=== PATIENT | female | born 1955 | race African-American/Black ===

== ENCOUNTER 2020-08-09 18:56 | Inpatient (IN) | payer MEDICARE ==
[2020-08-09] MEDS ORDERED: Apixaban 5 MG TAB PO SCH (21:00)
[2020-08-09] MEDS ORDERED: Acetaminophen 325 MG TAB PO PRN (21:17)
[2020-08-09] MEDS ORDERED: Nitroglycerin 0.4 MG TAB (25 Tab Bottle) SL PRN (21:23)
[2020-08-09] MEDS ORDERED: Ondansetron ODT 4 MG TAB SL PRN (21:23)
[2020-08-09] MEDS: HYDROcodone/Acetaminophen 5/325 mg Tablet PO PRN (21:31)
[2020-08-09] MEDS: Gabapentin 300 MG CAP PO SCH (21:33)
[2020-08-09] MEDS: predniSONE 10 MG TAB PO SCH (21:35)
[2020-08-10] MEDS: HYDROcodone/Acetaminophen 5/325 mg Tablet PO PRN ×2 (05:09→20:31)
[2020-08-10 07:43] LABS: Hemoglobin 7.8 g/dL (12.0-16.0); Mean Corpuscular HGB CONC 30.3 g/dL (32.0-36.0); Mean Corpuscular Volume 92.6 fL (78.0-98.0); Mean Platelet Volume 7.3 fL (7.4-10.4); Platelet Count 482 thou/uL (130-400); RBC Distribution Width 18.4 % (11.5-14.5); Red Blood Cell (RBC) Count 2.77 mill/uL (4.20-5.40); White Blood Cell (WBC) Count 3.9 thou/uL (4.8-10.8)
[2020-08-10 08:12] LABS: Carbon Dioxide 21 mmol/L (23-31); Chloride 112 mmol/L (98-107); Potassium 4.9 mmol/L (3.5-5.1); Sodium 140 mmol/L (136-145)
[2020-08-10 08:13] LABS: AST (SGOT) 43 U/L (5-34); Albumin 2.7 g/dL (3.4-4.8); Alkaline Phosphatase 117 U/L (40-110); BUN (Urea Nitrogen) 14 mg/dL (9.8-20.1); Bilirubin, Total 0.5 mg/dL (0.2-1.2); Calc. Creatinine Clearance 128 mL/min (70-130); Calcium 8.9 mg/dL (7.8-10.44); Globulin 2.5 g/dL (2.4-3.5); Glucose 84 mg/dL (80-115); Protein, Total 5.2 g/dL (5.8-8.1)
[2020-08-10 08:14] LABS: ALT (SGPT) 44 U/L (8-55); Anion Gap 10 mmol/L (10-20)
[2020-08-10 08:15] LABS: Manual Diff?? YES
[2020-08-10 08:25] LABS: Band 4 % (5-11); Eosinophils 1 % (0-10); MDiff Complete? YES; Monocytes 25 % (0-10); Neutrophil 48 % (42-75)
[2020-08-10 08:26] LABS: Anisocytosis SLIGHT = 6-15 cells (100X) (0-5/hpf); Platelet Morphology Comment Appears Increased
[2020-08-10 08:28] LABS: Lymphocytes 22 % (21-51)
[2020-08-10] MEDS: Aspirin Chewable 81 MG TAB PO SCH (08:30)
[2020-08-10] MEDS: predniSONE 10 MG TAB PO SCH ×2 (08:30→20:35)
[2020-08-10] MEDS: Gabapentin 300 MG CAP PO SCH (20:32)
[2020-08-11 05:34] LABS: Anisocytosis SLIGHT = 6-15 cells (100X) (0-5/hpf); Band 6 % (5-11); Large Platelets SLIGHT; Lymphocytes 31 % (21-51); MDiff Complete? YES; Mean Corpuscular HGB CONC 29.3 g/dL (32.0-36.0); Mean Corpuscular Hemoglobin 27.1 pg (27.0-31.0); Mean Corpuscular Volume 92.5 fL (78.0-98.0); Mean Platelet Volume 7.5 fL (7.4-10.4); Monocytes 33 % (0-10); Neutrophil 30 % (42-75); Platelet Clumps SLIGHT; Platelet Count 433 thou/uL (130-400); Platelet Morphology Comment Appears Increased; RBC Distribution Width 17.9 % (11.5-14.5); Red Blood Cell (RBC) Count 2.58 mill/uL (4.20-5.40); White Blood Cell (WBC) Count 4.6 thou/uL (4.8-10.8)
[2020-08-11] MEDS: Aspirin Chewable 81 MG TAB PO SCH (08:12)
[2020-08-11] MEDS: predniSONE 10 MG TAB PO SCH ×2 (08:12→20:57)
[2020-08-11] MEDS: HYDROcodone/Acetaminophen 5/325 mg Tablet PO PRN ×3 (08:14→20:58)
[2020-08-11] MEDS ORDERED: Apixaban 5 MG TAB PO SCH (14:00)
[2020-08-11] MEDS: Apixaban 5 MG TAB PO SCH ×4 (14:23→20:57)
[2020-08-11 20:04] LABS: Hemoglobin 8.3 g/dL (12.0-16.0)
[2020-08-11] MEDS: Gabapentin 300 MG CAP PO SCH (20:57)
[2020-08-12 05:46] LABS: Anisocytosis SLIGHT = 6-15 cells (100X) (0-5/hpf); Band 5 % (5-11); Hemoglobin 8.8 g/dL (12.0-16.0); Large Platelets SLIGHT; Lymphocytes 27 % (21-51); MDiff Complete? YES; Mean Corpuscular HGB CONC 29.9 g/dL (32.0-36.0); Mean Corpuscular Volume 90.3 fL (78.0-98.0); Mean Platelet Volume 7.4 fL (7.4-10.4); Monocytes 42 % (0-10); Neutrophil 26 % (42-75); Platelet Clumps SLIGHT; Platelet Count 431 thou/uL (130-400); Platelet Morphology Comment Appears Increased; RBC Distribution Width 18.7 % (11.5-14.5); Red Blood Cell (RBC) Count 3.24 mill/uL (4.20-5.40); White Blood Cell (WBC) Count 6.2 thou/uL (4.8-10.8)
[2020-08-12] MEDS: Apixaban 5 MG TAB PO SCH ×2 (08:45→20:45)
[2020-08-12] MEDS: predniSONE 10 MG TAB PO SCH ×2 (08:45→20:45)
[2020-08-12] MEDS: Aspirin Chewable 81 MG TAB PO SCH (08:45)
[2020-08-12] MEDS: HYDROcodone/Acetaminophen 5/325 mg Tablet PO PRN ×2 (08:52→20:45)
[2020-08-12] MEDS: Gabapentin 300 MG CAP PO SCH (20:45)
[2020-08-13] MEDS: Apixaban 5 MG TAB PO SCH ×2 (08:15→20:42)
[2020-08-13] MEDS: predniSONE 10 MG TAB PO SCH ×2 (08:15→20:43)
[2020-08-13] MEDS: Aspirin Chewable 81 MG TAB PO SCH (08:15)
[2020-08-13] MEDS: HYDROcodone/Acetaminophen 5/325 mg Tablet PO PRN ×2 (08:16→20:43)
[2020-08-13] MEDS ORDERED: Polyethylene Glycol 3350 17 GM Packet PO PRN (13:31)
[2020-08-13] MEDS: Gabapentin 300 MG CAP PO SCH (20:42)
[2020-08-14 05:40] LABS: Anisocytosis SLIGHT = 6-15 cells (100X) (0-5/hpf); Band 8 % (5-11); Hemoglobin 8.5 g/dL (12.0-16.0); Lymphocytes 17 % (21-51); MDiff Complete? YES; Mean Corpuscular HGB CONC 30.4 g/dL (32.0-36.0); Mean Corpuscular Hemoglobin 27.7 pg (27.0-31.0); Mean Corpuscular Volume 91.2 fL (78.0-98.0); Mean Platelet Volume 7.6 fL (7.4-10.4); Monocytes 33 % (0-10); Neutrophil 42 % (42-75); Platelet Count 367 thou/uL (130-400); Platelet Morphology Comment Appears Adequate; RBC Distribution Width 19.6 % (11.5-14.5); Red Blood Cell (RBC) Count 3.06 mill/uL (4.20-5.40); White Blood Cell (WBC) Count 12.9 thou/uL (4.8-10.8)
[2020-08-14 05:46] LABS: Anion Gap 14 mmol/L (10-20); BUN (Urea Nitrogen) 20 mg/dL (9.8-20.1); Calc. Creatinine Clearance 121 mL/min (70-130); Carbon Dioxide 22 mmol/L (23-31); Chloride 109 mmol/L (98-107); Glucose 91 mg/dL (80-115); Potassium 4.7 mmol/L (3.5-5.1); Sodium 140 mmol/L (136-145)
[2020-08-14] MEDS: HYDROcodone/Acetaminophen 5/325 mg Tablet PO PRN ×2 (06:25→20:25)
[2020-08-14] MEDS: Apixaban 5 MG TAB PO SCH ×2 (08:24→20:25)
[2020-08-14] MEDS: Aspirin Chewable 81 MG TAB PO SCH (08:24)
[2020-08-14] MEDS: predniSONE 10 MG TAB PO SCH ×2 (08:24→20:25)
[2020-08-14 10:21] VITALS: BMI 44.9
[2020-08-14] MEDS: Gabapentin 300 MG CAP PO SCH (20:25)
[2020-08-15] MEDS: Aspirin Chewable 81 MG TAB PO SCH (08:03)
[2020-08-15] MEDS: Apixaban 5 MG TAB PO SCH ×2 (08:03→21:56)
[2020-08-15] MEDS: predniSONE 10 MG TAB PO SCH ×2 (08:03→21:56)
[2020-08-15] MEDS: HYDROcodone/Acetaminophen 5/325 mg Tablet PO PRN (12:01)
[2020-08-15] MEDS: Gabapentin 300 MG CAP PO SCH (21:55)
[2020-08-16 05:46] LABS: Anisocytosis SLIGHT = 6-15 cells (100X) (0-5/hpf); Band 7 % (5-11); Eosinophils 1 % (0-10); Lymphocytes 16 % (21-51); MDiff Complete? YES; Mean Corpuscular HGB CONC 31.7 g/dL (32.0-36.0); Mean Corpuscular Hemoglobin 28.5 pg (27.0-31.0); Mean Corpuscular Volume 89.8 fL (78.0-98.0); Mean Platelet Volume 7.5 fL (7.4-10.4); Monocytes 26 % (0-10); Neutrophil 50 % (42-75); Platelet Clumps SLIGHT; Platelet Count 310 thou/uL (130-400); Platelet Morphology Comment Appears Adequate; RBC Distribution Width 19.3 % (11.5-14.5); Red Blood Cell (RBC) Count 3.17 mill/uL (4.20-5.40); White Blood Cell (WBC) Count 24.7 thou/uL (4.8-10.8)
[2020-08-16 05:47] LABS: Anion Gap 14 mmol/L (10-20); BUN (Urea Nitrogen) 23 mg/dL (9.8-20.1); Calc. Creatinine Clearance 122 mL/min (70-130); Calcium 9.1 mg/dL (7.8-10.44); Carbon Dioxide 23 mmol/L (23-31); Chloride 108 mmol/L (98-107); Glucose 100 mg/dL (80-115); Potassium 4.9 mmol/L (3.5-5.1); Sodium 140 mmol/L (136-145)
[2020-08-16] MEDS: Aspirin Chewable 81 MG TAB PO SCH (08:17)
[2020-08-16] MEDS: Apixaban 5 MG TAB PO SCH ×2 (08:17→21:10)
[2020-08-16] MEDS: predniSONE 10 MG TAB PO SCH ×2 (08:17→21:10)
[2020-08-16] MEDS: Gabapentin 300 MG CAP PO SCH (21:10)
[2020-08-17] MEDS: Aspirin Chewable 81 MG TAB PO SCH (09:01)
[2020-08-17] MEDS: predniSONE 10 MG TAB PO SCH ×2 (09:01→21:00)
[2020-08-17] MEDS: Apixaban 5 MG TAB PO SCH ×2 (09:01→20:59)
[2020-08-17] MEDS: HYDROcodone/Acetaminophen 5/325 mg Tablet PO PRN (09:06)
[2020-08-17] MEDS: Gabapentin 300 MG CAP PO SCH (20:59)
[2020-08-18] MEDS: predniSONE 10 MG TAB PO SCH ×2 (08:37→20:12)
[2020-08-18] MEDS: Aspirin Chewable 81 MG TAB PO SCH (08:37)
[2020-08-18] MEDS: Apixaban 5 MG TAB PO SCH ×2 (08:37→20:11)
[2020-08-18] MEDS: Gabapentin 300 MG CAP PO SCH (20:12)
[2020-08-18] MEDS: Acetaminophen 325 MG TAB PO PRN (20:13)
[2020-08-19 06:03] LABS: #Basophils 0.6 thou/uL (0.0-0.2); #Lymphocytes 1.7 thou/uL (1.20-3.40); %Basophils 2.2 % (0.0-1.0); %Eosinophils 0.1 % (0.0-10.0); %Lymphocytes 6.1 % (21.0-51.0); %Monocytes 11.1 % (0.0-10.0); %Neutrophils 80.5 % (42.0-75.0); Mean Corpuscular HGB CONC 32.3 g/dL (32.0-36.0); Mean Corpuscular Hemoglobin 29.3 pg (27.0-31.0); Mean Corpuscular Volume 90.9 fL (78.0-98.0); Mean Platelet Volume 7.7 fL (7.4-10.4); Platelet Count 300 thou/uL (130-400); RBC Distribution Width 19.9 % (11.5-14.5); Red Blood Cell (RBC) Count 3.06 mill/uL (4.20-5.40); White Blood Cell (WBC) Count 27.3 thou/uL (4.8-10.8)
[2020-08-19 06:04] LABS: Anisocytosis SLIGHT = 6-15 cells (100X) (0-5/hpf); Hypochromia SLIGHT = 6-15 cells (100X) (0-5/hpf); MDiff Complete? YES; Platelet Morphology Comment Appears Adequate
[2020-08-19] MEDS: Aspirin Chewable 81 MG TAB PO SCH (08:02)
[2020-08-19] MEDS: Apixaban 5 MG TAB PO SCH ×2 (08:02→20:35)
[2020-08-19] MEDS: predniSONE 10 MG TAB PO SCH ×2 (08:02→20:37)
[2020-08-19] MEDS: HYDROcodone/Acetaminophen 5/325 mg Tablet PO PRN (08:04)
[2020-08-19] MEDS: Gabapentin 300 MG CAP PO SCH (20:36)
[2020-08-19] MEDS: Acetaminophen 325 MG TAB PO PRN (20:37)
[2020-08-20 05:43] LABS: #Basophils 0.6 thou/uL (0.0-0.2); #Lymphocytes 1.1 thou/uL (1.20-3.40); #Monocytes 2.7 thou/uL (0.11-0.59); #Neutrophils 22.2 thou/uL (1.40-6.50); %Basophils 2.3 % (0.0-1.0); %Lymphocytes 4.3 % (21.0-51.0); %Monocytes 10.3 % (0.0-10.0); %Neutrophils 83.1 % (42.0-75.0); Anisocytosis SLIGHT = 6-15 cells (100X) (0-5/hpf); Hemoglobin 8.6 g/dL (12.0-16.0); Hypochromia SLIGHT = 6-15 cells (100X) (0-5/hpf); MDiff Complete? YES; Mean Corpuscular HGB CONC 30.7 g/dL (32.0-36.0); Mean Corpuscular Hemoglobin 28.4 pg (27.0-31.0); Mean Corpuscular Volume 92.4 fL (78.0-98.0); Mean Platelet Volume 8.2 fL (7.4-10.4); Platelet Count 301 thou/uL (130-400); Platelet Morphology Comment Appears Adequate; RBC Distribution Width 20.2 % (11.5-14.5); Red Blood Cell (RBC) Count 3.03 mill/uL (4.20-5.40); White Blood Cell (WBC) Count 26.7 thou/uL (4.8-10.8)
[2020-08-20] MEDS: Apixaban 5 MG TAB PO SCH ×2 (08:49→20:56)
[2020-08-20] MEDS: predniSONE 10 MG TAB PO SCH ×2 (08:49→20:57)
[2020-08-20] MEDS: Aspirin Chewable 81 MG TAB PO SCH (08:49)
[2020-08-20] MEDS: Gabapentin 300 MG CAP PO SCH (20:57)
[2020-08-21] MEDS: Aspirin Chewable 81 MG TAB PO SCH (08:10)
[2020-08-21] MEDS: predniSONE 10 MG TAB PO SCH ×2 (09:16→20:24)
[2020-08-21] MEDS: Apixaban 5 MG TAB PO SCH ×2 (09:17→20:24)
[2020-08-21] MEDS: HYDROcodone/Acetaminophen 5/325 mg Tablet PO PRN (19:52)
[2020-08-21] MEDS: Gabapentin 300 MG CAP PO SCH (20:24)
[2020-08-22] MEDS: Apixaban 5 MG TAB PO SCH (08:32)
[2020-08-22] MEDS: predniSONE 10 MG TAB PO SCH (08:32)
[2020-08-22] MEDS: Aspirin Chewable 81 MG TAB PO SCH (08:32)
[2020-08-22 08:43] VITALS: BP 131/84; TEMP 97.7
[2020-08-22 09:58] LABS: Hemoglobin 9.5 g/dL (12.0-16.0); Mean Corpuscular HGB CONC 30.4 g/dL (32.0-36.0); Mean Corpuscular Hemoglobin 28.2 pg (27.0-31.0); Mean Corpuscular Volume 92.9 fL (78.0-98.0); Mean Platelet Volume 8.5 fL (7.4-10.4); Platelet Count 318 thou/uL (130-400); RBC Distribution Width 20.7 % (11.5-14.5); Red Blood Cell (RBC) Count 3.37 mill/uL (4.20-5.40)
[2020-08-22 10:09] LABS: MDiff Complete? YES
[2020-08-22 10:10] LABS: Band 2 % (5-11); Lymphocytes 9 % (21-51); Monocytes 1 % (0-10); Neutrophil 88 % (42-75)
[2020-08-22 10:12] LABS: Anisocytosis SLIGHT = 6-15 cells (100X) (0-5/hpf); Hypochromia SLIGHT = 6-15 cells (100X) (0-5/hpf); Platelet Morphology Comment Appears Adequate
== END 2020-08-22 14:00 | DRG 948 ==
LOC: MADMS 18:56
PROVIDERS: ADMIT Family Medicine; ATTEND Family Medicine
PROC: 30233N1 Transfusion of Nonautologous Red Blood Cells into Peripheral Vein, Percutaneous Approach (ICD-10-PCS; principal; 2020-08-11)
DX: R53.1 Weakness (principal); I42.8 Other cardiomyopathies; C56.9 Malignant neoplasm of unspecified ovary; C78.2 Secondary malignant neoplasm of pleura; C79.89 Secondary malignant neoplasm of other specified sites; Z68.41 Body mass index [BMI] 40.0-44.9, adult; I25.10 Atherosclerotic heart disease of native coronary artery without angina pectoris; I50.9 Heart failure, unspecified; E66.9 Obesity, unspecified; D64.81 Anemia due to antineoplastic chemotherapy; D63.0 Anemia in neoplastic disease; R09.02 Hypoxemia; D72.829 Elevated white blood cell count, unspecified; T38.0X5A Adverse effect of glucocorticoids and synthetic analogues, initial encounter; I11.0 Hypertensive heart disease with heart failure; D69.6 Thrombocytopenia, unspecified; D69.59 Other secondary thrombocytopenia; T45.1X5A Adverse effect of antineoplastic and immunosuppressive drugs, initial encounter; I48.91 Unspecified atrial fibrillation; Z95.810 Presence of automatic (implantable) cardiac defibrillator; Z86.718 Personal history of other venous thrombosis and embolism; Z86.711 Personal history of pulmonary embolism; Z85.43 Personal history of malignant neoplasm of ovary; Z88.5 Allergy status to narcotic agent; Z79.01 Long term (current) use of anticoagulants; I25.2 Old myocardial infarction
CPT/HCPCS: 36415; 36416; 36430; 80048; 80053; 85007; 85025; 85027; 85060; 86850; 86900; 86901; J7512; P9016